=== PATIENT | male | born 1930 | race Caucasian/White ===

== ENCOUNTER 2017-09-30 20:33 | Inpatient (IN) | payer OTHER ==
[~2017-09-30] VITALS: Ht 177.8 cm; Wt 81.6 kg
--- NOTE | ~2017-09-30 | EKG ---
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 : 1930 Requested By: Josep Car Order Number: [id number] MD: Kj Dickson Measurements Intervals [facility] Rate: 99 P: [place]: QRS: -29 QRSD: 85 T: 132 QT: 387 QTc: 497 Interpretive Statements Atrial fibrillation Borderline left axis deviation Anteroseptal infarct, age indeterminate Nonspecific repol abnormality, lateral leads No previous ECG available for comparison Electronically Signed On 09-30-2017 22:17:07 [employer] by Kj Dickson [email or web address] <ELECTRONICALLY SIGNED> By: Kj Dickson MD 09/30/177 48 48 Kj Dickson MD /HOLLIS
--- NOTE | ~2017-09-30 | HC ---
[facility] [place] [address] CONSULTATION Name: TONYANY Armaan Room #: 446-P [facility]..#: [id number] Admission: 09/30/17 Attend Phys: Varinder Jones MD Discharge: 10/02/17 Date of : 32 Report #: [id number] THIS REPORT FOR: //name// CC: Kwame Del Valle DATE OF SERVICE: 10/01/2017 HISTORY OF PRESENT ILLNESS: The patient is an 87-year-old white male who was admitted with fever, chills, urinary retention, noted to have nausea, vomiting and diarrhea. He does have a past history of Parkinson's disease. He had a recent fall approximately 3 weeks ago. He was evaluated with his fever up to 102. He has seen his urologist prior to admission, apparently there was a change in his medications approximately 3 days prior to admission for his urinary retention. Upon admission to the hospital, he was noted to have nausea, vomiting, diarrhea with a probable gastroenteritis, for which he has been receiving IV fluids. He is noted to have generalized weakness and falls with the Parkinson's disease. He has urinary retention, which is being monitored. We are seeing him in rehabilitation medicine consultation. PAST MEDICAL HISTORY: Includes Parkinson's disease, history of urinary retention with Urology involvement, history of atrial fibrillation on Eliquis; hypertension, angioplasty. He has had a cholecystectomy and spinal surgery. MEDICATIONS: Please see the full medication listing. HABITS: Former smoker, quit greater than a year ago. No history of alcohol usage/abuse. ALLERGIES: No known drug allergies. SOCIAL HISTORY: Lives in an apartment with his . No stairs, drives, has a garage elevator. He does have a walker. is retired. REVIEW OF SYSTEMS: Did not offer any current complaints with chest pain, shortness of breath or abdominal discomfort. Notes he is feeling better. No focal extremity pain complaints. PHYSICAL EXAMINATION: GENERAL: He is an 87-year-old white male, in no obvious distress. VITAL SIGNS: Last recorded temperature 98.3, pulse 86, respirations 16, blood pressure 136/84. NEUROLOGIC: He is alert, pleasant. He does have a periorbital ecchymosis below his left orbit. Facies appeared to be symmetric. He was answering questions appropriately. Functional range of motion of both upper extremities with strength grade 4-/5. DTRs are trace to 1. Lower extremities, no focal calf [facility] [address] [place] [address] CONSULTATION Name: [place] CASTANEDA Room #: 446-P [facility].#: [id number] Admission: 09/30/17 Attend Phys: Varinder Jones MD Discharge: 10/02/17 Date of : 32 Report #: [id number] swelling, functional range of motion with strength grade 4-/5. He does have some cogwheeling of bilateral wrists and elbows. ASSESSMENT: An 87-year-old white male with the following problem list: 1. Parkinson's disease with a history of intermittent falls. 2. Apparent gastroenteritis, which appears to be improving. 3. Urinary retention, which is being monitored. 4. Hypertension. 5. Atrial fibrillation. 6. Past spinal surgery. PLAN: Therapy evaluations are underway. He is hoping to return back home in the near future and will need to see how he does with his therapies. Insurance will need to be checked regarding rehab therapy issues depending upon how he does. Hopefully, he will be able to return directly home, but again that is his wish and we will need to see how he does as far as actual performance as far as getting up and moving around in therapies. We will be glad to follow along with you. <ELECTRONICALLY SIGNED> By: Conor Anderson MD 10/07/17 [id number] Conor Anderson MD /PMT
[~2017-09-30 20:33] MED LIST: ASPIRIN EC325 MG PO; ELIQUIS5 MG PO; FINASTERIDE5 MG PO; LISINOPRIL10 MG PO; LOPRESSOR50 PO; MULTIVITAMINS1 EAC7 PO; NEURONTIN 300300 M1 PO; NORCO 5-325 TA1 EACH PO; NORVASC5 MG PO; PERCOCET 5-3251 EACH PO; PROZAC20 MG PO; TESSALON PERLE100 MG PO; VENTOLIN HFA INH8 GM IH; VITAMIN D1000 UNI2 PO; VYTORIN 10-201 EACH PO; ZPAK PO
[2017-09-30 20:34] VITALS: BP 146/74
[2017-09-30] MEDS ORDERED: LIPITOR 20 MG T20 M1 PO (20:48)
[2017-09-30] MEDS ORDERED: ARICEPT 5 MG TAB5 MG PO (20:52)
[2017-09-30] MEDS ORDERED: SINEMET 25-1001 EAC1 PO (20:52)
[2017-09-30 21:05] LABS: ANION GAP 10 mmol/L (7-16); BUN 21 mg/dL (7-18); CALCIUM 9.2 mg/dL (8.5-10.1); CHLORIDE 105 mmol/L (98-107); CO2 24 mmol/L (21-32); GLUCOSE 153 mg/dL (74-106); HEMATOCRIT 39.2 % (42.0-52.0); HEMOGLOBIN 13.4 gm/dL (14.0-18.0); MCH 30.3 pg (26.0-34.0); MCHC 34.1 g/dL (28.0-37.0); POTASSIUM 3.7 mmol/L (3.5-5.1); SODIUM 139 mmol/L (136-145); WBC 10.7 thou/uL (4.0-11.0)
[2017-09-30 21:14] LABS: ALBUMIN 2.4 g/dL (3.4-5.0); SGOT 30 U/L (15-37); SGPT 34 U/L (30-65); TOTAL BILIRUBIN 0.6 mg/dL (<0.1-1.0); TOTAL PROTEIN 7.1 g/dL (6.4-8.2); TROPONIN-I < 0.04 ng/mL (<0.06)
[2017-09-30 21:18] LABS: URINE BILIRUBIN NEGATIVE (Negative); URINE BLOOD 3+ (Negative); URINE CLARITY CLOUDY; URINE GLUCOSE-RANDOM* NEGATIVE (Negative); URINE KETONES NEGATIVE (Negative); URINE LEUKOCYTES-REFLEX NEGATIVE (Negative); URINE NITRITE-REFLEX NEGATIVE (Negative); URINE PROTEIN (DIPSTICK) TRACE (Negative); URINE UROBILINOGEN 0.2 E.U./dl (0.2-1.0)
[2017-09-30 21:19] LABS: URINE COLOR DARK YELLOW
[2017-09-30 21:28] LABS: ANISOCYTOSIS SLIGHT
[2017-09-30 21:37] LABS: PLATELET COUNT 256 thou/uL (150-400)
[2017-09-30 21:46] LABS: BACTERIA-REFLEX None Seen /HPF (None Seen); CASTS None Seen /LPF (None Seen); CRYSTALS None Seen /LPF (None Seen); SQUAMOUS 0-3 Few /LPF (0-3); URINE RBC >20 Many /HPF (0-2); URINE WBC-REFLEX 0-5 Rare /HPF (0-5)
[2017-09-30 22:11] VITALS: BP 132/69
[2017-09-30 22:40] VITALS: BP 134/72
[2017-09-30 23:02] VITALS: BP 148/66
[2017-10-01 03:22] VITALS: BP 118/58
[2017-10-01 08:03] VITALS: BP 136/84
[2017-10-01 15:36] VITALS: BP 135/67
[2017-10-01 21:36] VITALS: BP 154/77
[2017-10-02 04:49] VITALS: BP 145/70
[2017-10-02 08:00] VITALS: BP 121/56
[2017-10-02 12:58] LABS: HEMOGLOBIN 13.1 gm/dL (14.0-18.0); MCH 30.2 pg (26.0-34.0); MCHC 33.7 g/dL (28.0-37.0); MCV 89.6 fL (80.0-100.0); PLATELET COUNT 221 thou/uL (150-400); RBC 4.35 mil/uL (4.50-6.00); RDW 15.5 % (10.5-14.5); WBC 12.2 thou/uL (4.0-11.0)
[2017-10-02 13:10] LABS: CALCIUM 9.1 mg/dL (8.5-10.1); CREATININE 0.8 mg/dL (0.7-1.3); POTASSIUM 3.6 mmol/L (3.5-5.1)
[2017-10-02 13:26] LABS: ABSOLUTE NEUTROPHILS 8.3 thou/uL (1.4-8.2)
[2017-10-02 13:31] LABS: POLYCHROMASIA OCCASIONAL
[2017-10-02] MEDS ORDERED: FLOMAX0.4 MG PO (15:00)
[2017-10-02 15:50] VITALS: BP 140/99
[2017-10-02 19:41] VITALS: BP 140/99
== END 2017-10-02 20:42 | disposition home or self-care (01) | DRG 391 ==
LOC: ER 20:33 → EROBS 21:56 → 4S 21:56
PROVIDERS: Hospitalist; Physician Assistant
DX: K52.9 Noninfective gastroenteritis and colitis, unspecified (principal); E43 Unspecified severe protein-calorie malnutrition; I10 Essential (primary) hypertension; E78.00 Pure hypercholesterolemia, unspecified; G20 Parkinson's disease; I48.91 Unspecified atrial fibrillation; R33.9 Retention of urine, unspecified; N40.0 Benign prostatic hyperplasia without lower urinary tract symptoms; Z79.899 Other long term (current) drug therapy; Z90.49 Acquired absence of other specified parts of digestive tract; Z98.61 Coronary angioplasty status; Z87.891 Personal history of nicotine dependence
CPT/HCPCS: 10195

== ENCOUNTER → 2021-03-24 | Outpatient (CLI) | payer OTHER ==
[~2021-03-24] MED LIST changes: +ARICEPT 5 MG TAB5 MG PO; +FLOMAX0.4 MG PO; +LIPITOR 20 MG T20 M1 PO; +SINEMET 25-1001 EAC1 PO
== END ==
LOC: CAT 16:23
PROVIDERS: ATTEND Physical Medicine & Rehabilitation
DX: M48.061 Spinal stenosis, lumbar region without neurogenic claudication (principal); M54.16 Radiculopathy, lumbar region; M54.17 Radiculopathy, lumbosacral region; M47.814 Spondylosis without myelopathy or radiculopathy, thoracic region; M96.1 Postlaminectomy syndrome, not elsewhere classified; I25.10 Atherosclerotic heart disease of native coronary artery without angina pectoris; I51.7 Cardiomegaly; J43.2 Centrilobular emphysema; M25.78 Osteophyte, vertebrae; M48.02 Spinal stenosis, cervical region; N20.0 Calculus of kidney; I70.8 Atherosclerosis of other arteries; K57.30 Diverticulosis of large intestine without perforation or abscess without bleeding